=== PATIENT | male | born 1960 | race Caucasian/White ===

== ENCOUNTER 2016-04-14 23:01 | Observation (INO) | payer OTHER ==
--- NOTE | ~2016-04-14 | HP ---
History And Physical [facility] [address] [place]. [address] NAME: TRES HERNÁNDEZ : 62 STATUS : ADM Gudelia PAT#: [id number] AGE: 55 ADM/REG DATE : 04/14/16 MR#: [id number] REPORT SERV DATE: 04/15/16 DICTATED BY: PILAR DOUGLASS DATE: 04/15/16 REPORT STATUS : Draft TRANSCRIBED BY: MODAren DATE: 04/15/16 DATE OF ADMISSION: 04/14/2016 POINT OF ENTRY: [facility]. CHIEF COMPLAINT: Altered mental status, sedation, and lethargy. HISTORY OF PRESENT ILLNESS: Mr. Hernández is a 55-year-old gentleman with history of COPD, chronic pain on chronic narcotics, who presents to the emergency department today with reports of altered mental status with sedation and lethargy. The patient states that he must have passed out at home. He is unable to tell me who called EMS. According to the ER physician, EMS was called, and when they arrived at the home, they felt it to be an unsafe situation as someone was in the background and violently screaming. They had to wait until the police arrived in order to gain access to the scene. He was found to be altered, sedated, and lethargic with pinpoint pupils and slurred speech. He received a dose of Narcan with some improvement in patient's level of consciousness. Initial evaluation in the emergency department noted for continued encephalopathy, sedation, and lethargy; however, workup was unremarkable as ABG on room air was okay. Urinalysis was unremarkable. Urine drug screen showed positive for opiates. Remainder of his labs were unremarkable. The patient was not given any further Narcan. A CT scan of the brain was not obtained. He was subsequently admitted to the Hospitalist Service for further evaluation and management. The patient states that he was reportedly kicked out of pain management on as he missed a scheduled appointment. He states that his last hydrocodone taken was on Tuesday. He denies any other illicit drug use or use of other prescription narcotics or sedating medications. Denies any alcohol abuse. He denies any recent troubles with fevers, night sweats, chest pain, shortness of breath, cough, sputum production, abdominal pain, nausea, vomiting, diarrhea, or constipation. The patient cannot explain to me why he passed out or was found to be very altered, sedated, and lethargic. Of note, the patient despite his mental status has been asking medical staff and nursing for pain medications for his various pain complaints. REVIEW OF SYSTEMS: Comprehensive review of system otherwise negative unless listed in history of present illness. PREVIOUS MEDICAL HISTORY: 1. COPD. 2. Chronic pain, formally in chronic pain management. 3. Peptic ulcer disease. 4. History of stroke on CT. 5. Hypertension. History And Physical [address] [address] NAME: TRES HERNÁNDEZ : 62 STATUS : ADM Gudelia PAT#: [id number] AGE: 55 ADM/REG DATE : 04/14/16 MR#: [id number] REPORT SERV DATE: 04/15/16 DICTATED BY: PILAR DOUGLASS DATE: 04/15/16 REPORT STATUS : Draft TRANSCRIBED BY: EVAN DATE: 04/15/16 6. Recent admission in December 2015 for syncope and encephalopathy, thought to be multifactorial. SURGICAL HISTORY: 1. Left ankle. 2. Bilateral shoulder. 3. Left hip. 4. Hernia repair surgery. ALLERGIES: CODEINE, TORADOL, AND THORAZINE. HOME MEDICATIONS: Pending at the time of dictation. SOCIAL HISTORY: He denies any tobacco, alcohol, or illicits. FAMILY MEDICAL HISTORY: Father of lung cancer. Sibling with a history of methamphetamine overdose. LABS AND IMAGIN. White count is 8.6, hemoglobin is 13.0, hematocrit is 37.2, platelets of 259, INR 1.1. 2. Sodium is 144, potassium is 3.6, chloride of 104, carbon dioxide of 30, BUN is 10, creatinine is 1.00, glucose is 87, calcium is 8.9, protein is 6.9, albumin is 3.9, bilirubin is 0.4, ALT is 48, AST is 12, alkaline phosphatase is 83. 3. Lactic acid is 1.0. 4. Urine drug screen positive for opiates. 5. Urinalysis: Spec gravity is 1.003. No evidence of any infection. 6. Ammonia level 30. Aspirin, acetaminophen, and alcohol levels are negative. 7. Chest x-ray, per review, shows no acute cardiopulmonary abnormality. 8. ABG: PH is 7.44, pCO2 is 39, PO2 is 68, bicarb is 26, saturating 94% on room air. PHYSICAL EXAMINATION: VITAL SIGNS: Temperature is 97.6 degrees Fahrenheit, pulse is 73, respirations 22, saturating 97% on room air, blood pressure is 124/89. GENERAL: The patient is sedated and lethargic but will awaken to verbal stimuli. He is a chronically ill-appearing, disheveled male. No family at bedside. HEENT: Atraumatic and normocephalic. Slightly dry mucous membranes. Pinpoint pupils about 2 to 3 mm but equal, round, and reactive. NECK: No jugular venous distention. No carotid bruits. CARDIAC: Regular rate and rhythm. No murmurs or gallops. Normal S1, S2. LUNGS: Clear to auscultation bilaterally. No wheezes, rhonchi, or crackles. ABDOMEN: Soft, nontender, nondistended. Good bowel sounds. No rebound or guarding. EXTREMITIES: Warm, well perfused. No cyanosis, clubbing, or edema. SKIN: Warm and dry. PSYCH: Affect is slightly lethargic and sedated. NEURO: Sedated and lethargic; however, awakens to verbal stimuli. He is alert and oriented x3 upon questioning. Cranial nerves II through XII are grossly intact. Speech is somewhat slow and slurred but with repeated questioning, his level of conscious improved as did his History And Physical [address] [address] NAME: TRES HERNÁNDEZ : 62 STATUS : ADM Gudelia PAT#: [id number] AGE: 55 ADM/REG DATE : 04/14/16 MR#: [id number] REPORT SERV DATE: 04/15/16 DICTATED BY: PILAR DOUGLASS DATE: 04/15/16 REPORT STATUS : Draft TRANSCRIBED BY: MODL DATE: 04/15/16 speech. No focal deficits appreciated. ASSESSMENT AND PLAN: Mr. Hernández is a 55-year-old gentleman with history of chronic pain on chronic narcotics, who was found to be altered and sedated by EMS with improvement in the patient's level of consciousness, status post Narcan administration. PROBLEM LIST: 1. Encephalopathy. 2. Sedation and lethargy. 3. History of chronic pain on chronic narcotics. PLAN: 1. Encephalopathy. I suspect this is likely medication related as he does have a known history of chronic pain on chronic narcotics and his urine drug screen is positive for opiates. Remainder of the workup thus far has been unremarkable. We will continue our workup with thyroid function studies, vitamin B12, as well as a stat CT scan of the brain. We will hold off sedating medications, observe for improvement in patient's mental status. Of note, the patient had very similar admission in December of 2015 with negative extensive workup including neurology consultation, EEG, as well as MRI and MRA of the brain. Of note, the patient's ammonia level is mildly elevated at 30, but I do not suspect that this is the primary etiology of patient's symptoms. 2. Sedation and lethargy. I suspect this is all medication related. His ammonia level is mildly elevated. Checking alternative etiology such as thyroid function studies as well as CT scan of the brain. 3. Reported syncope. I questioned the veracity of patient's reports of syncope. We will check a CT scan of the brain, orthostatic vital signs as well as echocardiogram and EKG. I suspect this is mainly likely medication related. 4. DVT prophylaxis. Lovenox subcu. CODE STATUS: The patient wishes to be full code. JCB/MODL Pilar Douglass MD / [id number] CC: Jaden Angela M.D.
--- NOTE | ~2016-04-14 | DS ---
Discharge Summary [facility] [address] [place]. [address] NAME: TRES BLEDSOE : 62 STATUS : DIS Gudelia PAT#: [id number] AGE: 55 ADM/REG DATE : 04/14/16 MR#: [id number] REPORT SERV DATE: 04/16/16 DICTATED BY: TRES MORE DATE: 04/16/16 REPORT STATUS : Draft TRANSCRIBED BY: MODL DATE: 04/16/16 ADMISSION DATE: 04/14/2016 DISCHARGE DATE: 04/16/2016 Left against medical advice, 04/16/2016. DISCHARGE DIAGNOSES: 1. Metabolic encephalopathy most likely due to medication side effect. 2. Chronic obstructive pulmonary disease. 3. Hypertension. 4. Chronic pain reportedly due to hip and knee problems from prior injury. 5. Chronic anxiety. This patient was admitted here on 12/2015 with confusion and altered mental status. He was evaluated by Neurology and had EEGs and imaging and no particular cause was found but it was suspected to be related to multiple medications. The patient was admitted 03/12/2016 through 03/18/2016 to [facility] with confusion and agitation. Their records were requested and I reviewed them. CT of the brain unremarkable. MRI of the brain showed some mild atrophy, mild white matter changes, bilateral maxillary sinusitis. The patient was admitted at that time with confusion and agitation and some paranoid thoughts and according to his family was "talking out of his head" and was threatening to shoot himself. In the description of hospital course their notes indicate that the sister had mentioned the patient has a history of alcohol abuse. He was initially admitted there and a certificate of need was placed on him and he had a sitter. They started him on some Seroquel. They indicated that "ammonia levels were checked and showed mild elevations." They gave him some lactulose. He had no further agitation. He was allowed to go home and follow up with his PCP. They labeled him as having hepatic encephalopathy. However, they do not describe any imaging that shows cirrhosis. At this time, he was brought to our hospital with a similar story again that he was confused and reportedly when the paramedics arrived, they felt it was initially unsafe to go into his place because "someone was in the background and violently screaming." Police came to the scene, reportedly gained access, found the patient altered, sedated, and lethargic. Reportedly he was given Narcan with improvement in his level of consciousness. His evaluation here at this current hospitalization included CT scan of the brain which showed no acute abnormalities. Chest x-ray showed some blunting of the left costophrenic angle. Otherwise, unremarkable findings. Arterial blood gas on room air pH 7.44, pCO2 of 39, pO2 of 68, bicarbonate 26. Renal function and CMP findings normal. TSH normal. Acetaminophen less than 2. Salicylate 1.7. Blood alcohol level less than 10. Ammonia level was normal at 30. Lactic acid level normal at 1. White count normal at 8.6, hemoglobin slightly reduced at 13, platelets 259,000. Protime 14, INR 1. Urine drug screen positive for opiates. Urinalysis unremarkable and chest x-ray also unremarkable. The patient remained alert and during my visit with him on 04/15/2016, he was focused on asking for further pain medicines stating he had been fired from his [facility] which he states is [facility], and he states he would see the nurse practitioner, Terrie. He states he was fired from them because he missed an appointment. He states he has chronic pain in his knees and hips. Also states he has chronic anxiety. Initially stated he took Xanax [address] Discharge Summary [address] [place]. [address] NAME: TRES BLEDSOE : 62 STATUS : DIS Gudelia PAT#: [id number] AGE: 55 ADM/REG DATE : 04/14/16 MR#: [id number] REPORT SERV DATE: 04/16/16 DICTATED BY: TRES MORE DATE: 04/16/16 REPORT STATUS : Draft TRANSCRIBED BY: MODAren DATE: 04/16/16 mg twice a day then he told me that he was almost out of it and he was only taking it occasionally. He states he used to smoke 3 packs a day but has cut down to half pack per day. He was alert, oriented to his full name, [facility], the year, the president. He was ambulatory. He had no focal neurologic deficits. He was calm. He had an echocardiogram ordered by our admitting partner showing left ventricular diastolic dysfunction with left atrial size 3.9, left ventricular ejection fraction 51%. Early in the morning of 04/16/2016, nursing found him smoking. Apparently they had talked with him about this. He continued to do the smoking and when they took his cigarettes away from him he stated that he was leaving them against medical advice. There is no sign that he was altered at that time he made this decision based on what nursing described. They had the house trust administrator talk with him. It is suspected again that substances are the likely explanation for this transient confusion that clears once he is given Narcan and he is away from substances. ABDIFATAH/SYMONEL Tres More M.D. / [id number] CC: Jaden Angela M.D. David Collins, M.D. [facility]
[~2016-04-14 23:01] MED LIST: ADVIL PO; FLEX PO; K500 PO; LOP25 PO; MOBIC15 MG PO; NORCO1 TAB PO; NORV10 PO; XANAX2 MG PO
[2016-04-14 23:15] LABS: INSTRUMENT SERIAL # 8087; pH 7.44 (7.37-7.43)
[2016-04-14 23:16] LABS: ALLENS TEST Pos; BE (BASE EXCESS) 1.9 MEQ/L (0 +/- 2.5); CARBOXYHEMOGLOBIN 3.5 % (0-3); HEMOBLOGIN CONTENT 13.4 G/DL (14-18); METHEMOGLOBIN 0.2 % (0-3); O2 CONTENT 17.1 VOL% (18-24); OPERATOR ID 17589; PCO2 (CO2 TENSION) 39 MMHG (35-45); PO2 (O2 TENSION) 68 MMHG (79-93); SAMPLE Arterial
[2016-04-14 23:42] LABS: BASOPHILS 0.2 %; BASOPHILS ABSOLUTE 0.02 10/3/uL (0.0-0.16); EOSINOPHILS 1.8 %; EOSINOPHILS ABSOLUTE 0.15 10/3/uL (0.0-0.53); ER CBC TAT 0 Hrs 08 Mins; IMMATURE GRANULOCYTES 0.1 %; IMMATURE GRANULOCYTES ABSOLUTE 0.01 10/3/uL (0.0-0.11); LYMPHOCYTES 38.1 %; LYMPHOCYTES ABSOLUTE 3.26 10/3/uL (0.67-4.30); MEAN CORPUS HGB CONC 34.9 g/dL (32.0-36.0); MEAN CORPUSCULAR HEMOGLOB 31.3 pg (26.0-34.0); MEAN CORPUSCULAR VOLUME 89.4 fL (80-100); MEAN PLATELET VOLUME 9.1 fL (9.2-13.0); MONOCYTES 7.5 %; MONOCYTES ABSOLUTE 0.64 10/3/uL (0.21-1.20); NEUTROPHILS 52.3 %; NEUTROPHILS ABSOLUTE 4.47 10/3/uL (2.02-8.40); PLATELET COUNT 259 10/3/uL (150-400); RED CELL COUNT 4.16 10/6/uL (4.7-6.1); WHITE BLOOD CELLS 8.6 10/3/uL (4.5-10.5)
[2016-04-14 23:43] LABS: HEMATOCRIT 37.2 % (40.0-51.0); MANUAL DIFF NO %
[2016-04-14 23:53] LABS: INTERNATIONAL NORMAL RATI 1.1 UNITS (-); PARTIAL THROMBO TIME 25.2 SEC (22.5-37.2)
[2016-04-14 23:54] LABS: ASCORBIC ACID (UR NOT ORDER) NEG (NEG); BILIRUBIN, URINE NEGATIVE (NEG); ER URINALYSIS TAT 0 Hrs 00 Mins; KETONE, URINE NEGATIVE (NEG); LEUKOCYTE ESTERASE(NOT OR NEG (NEG); NITRITE (URINE) NEG (NEG); WBC (NOT ORDERED) (RFLEX) 0 (0-5)
[2016-04-15 00:03] LABS: A/G RATIO 1.3 (0.7-1.9); ALBUMIN 3.9 G/DL (3.5-5.0); ALKALINE PHOSPHATASE 83 U/L (45-117); CALCIUM, SERUM 8.9 MG/DL (8.5-10.4); CHLORIDE, SERUM 104 MMOL/L (96-112); GFR AFRICAN AMERICAN 98 ML/MIN (>=60); GFR NON AFRICAN AMERICAN 85 ML/MIN (>=60); GLUCOSE, SERUM 87 MG/DL (60-99); POTASSIUM, SERUM 3.6 MMOL/L (3.5-5.3); SGOT(AST) 12 U/L (5-40); SGPT(ALT) 40 U/L (5-65); SODIUM, SERUM 144 MMOL/L (135-148); TOTAL PROTEIN 6.9 G/DL (6.0-8.5)
[2016-04-15 00:12] LABS: BUN (BLOOD UREA NITROGEN) 10 MG/DL (6-23); CO2 (CARBON DIOXIDE) 30 MMOL/L (24-34); TOTAL BILIRUBIN 0.4 MG/DL (0-1.2)
[2016-04-15 00:59] LABS: PROCALCITONIN <0.05 ng/mL (<0.5)
[2016-04-15 01:39] LABS: ACETAMINOPHEN LEVEL (TYLENOL) < 2.0 MCG/ML (10.0-20.0); ALCOHOL < 10 MG/DL (0); SALICYLATE 1.7 MG/DL (-)
[2016-04-15 01:41] LABS: AMPHETAMINES (NOT ORD) NEG (NEG); BARBITURATES (NOT ORDERED NEG (NEG); BENZODIAZEPINES (NOT ORD) NEG (NEG); CANNABINOIDS (THC) NEG (NEG); COCAINE (NOT ORDERED) NEG (NEG); OPIATES POS (NEG); PHENCYCLIDINE(PCP) NEG (NEG); TRICYCLICS NEG (NEG)
[2016-04-15] MEDS ORDERED: SEROQUEL50 MG PO (02:23)
[2016-04-15] MEDS ORDERED: NORCO1 TAB PO (02:24)
[2016-04-15] MEDS ORDERED: FLEX PO (02:24)
[2016-04-15] MEDS ORDERED: IBU800 PO (02:24)
[2016-04-15] MEDS ORDERED: CONSTULOSE PO (02:24)
[2016-04-15] MEDS ORDERED: XANAX2 MG PO (02:25)
[2016-04-15] MEDS ORDERED: KLOR-CON M2020 MEQ PO (02:25)
[2016-04-15] MEDS ORDERED: ZOCOR10 PO (02:26)
[2016-04-15] MEDS ORDERED: LOP25 PO (02:26)
[2016-04-15] MEDS ORDERED: NORV10 PO (02:26)
[2016-04-15 07:40] LABS: FOLATE 7.6 NG/ML (>5.2); FREE T4 0.94 NG/DL (0.76-1.46); ULTRASENSITIVE TSH 2.18 MCIU/ML (0.358-3.740)
== END 2016-04-16 05:50 | disposition left against medical advice (07) ==
LOC: ER 23:01 → 1SO 23:02
PROVIDERS: Emergency Medicine; Internal Medicine
DX: G93.41 Metabolic encephalopathy (principal); J44.9 Chronic obstructive pulmonary disease, unspecified; F41.9 Anxiety disorder, unspecified; G89.29 Other chronic pain; M19.90 Unspecified osteoarthritis, unspecified site; I10 Essential (primary) hypertension; Z86.73 Personal history of transient ischemic attack (TIA), and cerebral infarction without residual deficits; Z98.890 Other specified postprocedural states; Z88.5 Allergy status to narcotic agent; Z88.8 Allergy status to other drugs, medicaments and biological substances; Z80.1 Family history of malignant neoplasm of trachea, bronchus and lung; Z79.899 Other long term (current) drug therapy
CPT/HCPCS: 36600; 70450; 71010; 80053; 80305; 80307; 81001; 82140; 82607; 82746; 82805; 83605; 83690; 84145; 84439; 84443; 85025; 85610; 85730; 87040; 93005; 93306; 96372; 96374; 99285; A9270-GY; G0378; J2405

== ENCOUNTER 2016-04-23 17:40 | Emergency (ER) | payer OTHER ==
[2016-04-23 15:02] LABS: BASOPHILS 0.3 %; BASOPHILS ABSOLUTE 0.02 10/3/uL (0.0-0.16); EOSINOPHILS 1.8 %; EOSINOPHILS ABSOLUTE 0.12 10/3/uL (0.0-0.53); HEMOGLOBIN 14.7 g/dL (13.6-17.8); IMMATURE GRANULOCYTES 0.1 %; IMMATURE GRANULOCYTES ABSOLUTE 0.01 10/3/uL (0.0-0.11); LYMPHOCYTES 46.1 %; LYMPHOCYTES ABSOLUTE 3.15 10/3/uL (0.67-4.30); MEAN CORPUS HGB CONC 35.4 g/dL (32.0-36.0); MEAN CORPUSCULAR HEMOGLOB 32.4 pg (26.0-34.0); MEAN CORPUSCULAR VOLUME 91.4 fL (80-100); MONOCYTES ABSOLUTE 0.48 10/3/uL (0.21-1.20); NEUTROPHILS 44.7 %; NEUTROPHILS ABSOLUTE 3.06 10/3/uL (2.02-8.40); PLATELET COUNT 269 10/3/uL (150-400); RBC DISTRIBUTION WIDTH 12.9 % (12.0-16.0); RED CELL COUNT 4.54 10/6/uL (4.7-6.1); WHITE BLOOD CELLS 6.8 10/3/uL (4.5-10.5)
[2016-04-23 15:04] LABS: HEMATOCRIT 41.5 % (40.0-51.0); MANUAL DIFF NO %
[2016-04-23 15:16] LABS: INTERNATIONAL NORMAL RATI 1.1 UNITS (-); PARTIAL THROMBO TIME 26.9 SEC (22.5-37.2); PROTIME (NOT ORD) 13.6 SEC (12.0-14.5)
[2016-04-23 15:25] LABS: A/G RATIO 1.1 (0.7-1.9); ALBUMIN 4.2 G/DL (3.5-5.0); ALKALINE PHOSPHATASE 85 U/L (45-117); BUN (BLOOD UREA NITROGEN) 9 MG/DL (6-23); CALCIUM, SERUM 9.2 MG/DL (8.5-10.4); CHLORIDE, SERUM 107 MMOL/L (96-112); CO2 (CARBON DIOXIDE) 28 MMOL/L (24-34); CREATININE 1.03 MG/DL (0.70-1.30); GFR AFRICAN AMERICAN 95 ML/MIN (>=60); GFR NON AFRICAN AMERICAN 82 ML/MIN (>=60); GLUCOSE, SERUM 101 MG/DL (60-99); POTASSIUM, SERUM 3.5 MMOL/L (3.5-5.3); SGOT(AST) 16 U/L (5-40); SGPT(ALT) 47 U/L (5-65); SODIUM, SERUM 144 MMOL/L (135-148); TOTAL BILIRUBIN 0.4 MG/DL (0-1.2); TOTAL PROTEIN 7.9 G/DL (6.0-8.5); TROPONIN I <0.02 NG/ML (<0.05)
[2016-04-23 15:26] LABS: GLOBULIN 3.7 G/DL (2.5-4.1)
[~2016-04-23 17:40] MED LIST changes: +CONSTULOSE PO; +IBU800 PO; +KLOR-CON M2020 MEQ PO; +SEROQUEL50 MG PO; +ZOCOR10 PO
[2016-04-23 18:08] LABS: ALCOHOL < 10 MG/DL (0)
[2016-04-23 18:38] LABS: BENZODIAZEPINES (NOT ORD) POS (NEG); PHENCYCLIDINE(PCP) NEG (NEG)
[2016-04-23 18:39] LABS: AMPHETAMINES (NOT ORD) NEG (NEG); BARBITURATES (NOT ORDERED NEG (NEG); CANNABINOIDS (THC) NEG (NEG); COCAINE (NOT ORDERED) NEG (NEG); OPIATES POS (NEG); TRICYCLICS NEG (NEG)
== END 2016-04-23 19:50 | disposition home or self-care (01) ==
LOC: ER 17:40
PROVIDERS: Emergency Medicine
DX: R53.1 Weakness (principal); T40.605A Adverse effect of unspecified narcotics, initial encounter; T42.4X5A Adverse effect of benzodiazepines, initial encounter; J44.9 Chronic obstructive pulmonary disease, unspecified; I10 Essential (primary) hypertension; Z86.73 Personal history of transient ischemic attack (TIA), and cerebral infarction without residual deficits; Z87.891 Personal history of nicotine dependence
CPT/HCPCS: 70450; 71020; 80053; 80305; 84484; 85025; 85610; 85730; 93005; 99285; G0480